=== PATIENT | female | born 1990 | race Caucasian/White ===

== ENCOUNTER 2019-11-24 18:07 | Outpatient (CLI) | payer BC, OTHER ==
[~2019-11-24] VITALS: Ht 167.6 cm; Wt 70.0 kg
[2019-11-24] MEDS ORDERED: ASPI-515 PO (18:39)
[2019-11-24 18:40] VITALS: BP 127/77
[2019-11-24 18:58] LABS: MICROSCOPIC INDICATED
== END 2019-11-24 19:40 | disposition home or self-care (01) ==
LOC: LDOP 18:07
PROVIDERS: ATTEND Obstetrics & Gynecology Maternal & Fetal Medicine
DX: O26.92 Pregnancy related conditions, unspecified, second trimester (principal); R10.9 Unspecified abdominal pain; Z3A.24 24 weeks gestation of pregnancy
CPT/HCPCS: 81001; 87086; 99211; G0463

== ENCOUNTER 2020-02-05 12:46 | Outpatient (CLI) | payer OTHER ==
[~2020-02-05] VITALS: Ht 167.6 cm; Wt 72.7 kg
[~2020-02-05 12:46] MED LIST: ASPI-515 PO
[2020-02-05] MEDS ORDERED: PREN1TAB60 PO (13:02)
[2020-02-05] MEDS ORDERED: BETAMETHASONE 6 MG/ML, 5ML IM ONE ×2 (13:20→13:30)
[2020-02-05 13:44] VITALS: BP 124/84
[2020-02-05 13:46] LABS: BASOPHILS # (AUTO) 0.03 x10^3/uL (0-0.1); BASOPHILS % (AUTO) 0 % (0-1); EOSINOPHILS # (AUTO) 0.02 x10^3/uL (0-0.4); EOSINOPHILS % (AUTO) 0 % (1-7); LYMPHOCYTES # (AUTO) 2.56 x10^3/uL (1-3.4); LYMPHOCYTES % (AUTO) 22 % (22-44); MD NO; MEAN CORPUSCULAR HEMOGLOBIN 30.5 pg (27.0-34.8); MEAN CORPUSCULAR HGB CONC 33.3 g/dL (32.4-35.8); MEAN CORPUSCULAR VOLUME 91.6 fL (80-100); MEAN PLATELET VOLUME 8.4 fL (7.4-10.4); MONOCYTES # (AUTO) 0.62 x10^3/uL (0.2-0.8); MONOCYTES % (AUTO) 5 % (2-9); NEUTROPHILS # (AUTO) 8.25 x10^3/uL (1.8-6.8); NEUTROPHILS % (AUTO) 72 % (42-75); PLATELET COUNT 201 x10^3/uL (130-400); RED BLOOD COUNT 4.32 x10^6/uL (3.82-5.3); RED CELL DISTRIBUTION WIDTH 13.4 % (9.6-15.2)
[2020-02-05 13:54] LABS: ALANINE AMINOTRANSFERASE 14 U/L (12-78); ALBUMIN 2.5 g/dL (3.4-5.0); ANION GAP 10 mmol/L (5-15); CALCIUM 8.2 mg/dL (8.5-10.1); CHLORIDE 109 mmol/L (98-107); CREATININE 0.79 mg/dL (0.55-1.02)
[2020-02-05 13:56] LABS: ALKALINE PHOSPHATASE 226 U/L (45-117); BILIRUBIN,TOTAL 0.5 mg/dL (0.2-1.0); TOTAL PROTEIN 6.1 g/dL (6.4-8.2)
[2020-02-05 13:58] LABS: BILIRUBIN, DIRECT < 0.1 mg/dL (0.1-0.2)
[2020-02-05 14:14] LABS: MICROSCOPIC INDICATED
[2020-02-05 14:20] LABS: AMPHETAMINE SCREEN, URINE Negative (Negative); BARBITURATE SCREEN, URINE Negative (Negative); BENZODIAZEPINE SCREEN, URINE Negative (Negative); CANNABINOID SCREEN, URINE Negative (Negative); COCAINE SCREEN, URINE Negative (Negative); METHADONE SCREEN, URINE Negative (Negative); PROTEIN/CREATININE RATIO,URINE 198 (0-200); TOTAL PROTEIN,URINE RANDOM 14 mg/dL (0-12)
[2020-02-05 14:25] LABS: OPIATE SCREEN, URINE Negative (Negative)
== END 2020-02-05 15:01 | disposition home or self-care (01) ==
LOC: LDOP 12:46
PROVIDERS: ATTEND Advanced Practice Midwife
DX: O13.3 Gestational [pregnancy-induced] hypertension without significant proteinuria, third trimester (principal); O26.893 Other specified pregnancy related conditions, third trimester; O99.333 Smoking (tobacco) complicating pregnancy, third trimester; F17.210 Nicotine dependence, cigarettes, uncomplicated; F19.20 Other psychoactive substance dependence, uncomplicated; Z3A.34 34 weeks gestation of pregnancy
CPT/HCPCS: 36415; 59025; 80053; 80307; 81001; 82248; 82570; 84156; 84550; 85025; 87081; 87147; 96372; 99211; J0702; G0463

== ENCOUNTER 2020-02-06 13:43 | Outpatient (CLI) | payer OTHER ==
[~2020-02-06 13:43] MED LIST changes: +PREN1TAB60 PO
[2020-02-06] MEDS ORDERED: BETAMETHASONE 6 MG/ML, 5ML IM ONE (14:30)
[2020-02-20] MEDS ORDERED: IBUP-1222 PO (09:10)
[2020-02-20] MEDS ORDERED: OXYC-302 PO (09:10)
[2020-02-20] MEDS ORDERED: DOCU-131 PO (09:11)
== END 2020-02-06 14:00 | disposition home or self-care (01) ==
LOC: LDOP 13:43
PROVIDERS: ATTEND Advanced Practice Midwife
DX: O26.893 Other specified pregnancy related conditions, third trimester (principal); O13.3 Gestational [pregnancy-induced] hypertension without significant proteinuria, third trimester; O99.333 Smoking (tobacco) complicating pregnancy, third trimester; F17.210 Nicotine dependence, cigarettes, uncomplicated; Z3A.34 34 weeks gestation of pregnancy
CPT/HCPCS: 96372; 99211; J0702; 59025; G0463